=== PATIENT | male | born 1995 | race Caucasian/White ===

== ENCOUNTER 2017-04-17 13:58 | Emergency (ER) | payer SELFPAY ==
[2017-04-17] MEDS: IBUPROFEN 800 MG TAB PO (17:28)
[2017-04-17] MEDS: ONDANSETRON (ODT) 4 MG TAB ODT (17:28)
== END 2017-04-18 09:01 | disposition left against medical advice (07) ==
LOC: FTE 04-18 09:01
DX: R50.9 Fever, unspecified (principal); R05 Cough; R06.7 Sneezing; R51 Headache; R11.2 Nausea with vomiting, unspecified
CPT/HCPCS: 99283